=== PATIENT | male | born 1960 | race Caucasian/White ===

== ENCOUNTER 2018-01-27 17:59 | Emergency (ER) | payer SELFPAY ==
[2018-01-27 18:12] VITALS: BP 147/97
[2018-01-27] MEDS ORDERED: Sodium Chloride 0.9% 1,000 ML IV ONE (18:34)
[2018-01-27] MEDS ORDERED: HYDROmorphone 0.5 MG/0.5 ML SYRINGE IVPUSH ONE (18:35)
[2018-01-27] MEDS ORDERED: Ondansetron 4 MG/2 ML SDV IVPUSH ONE (18:35)
[2018-01-27] MEDS ORDERED: Sodium Chloride 0.9% 10 ML Syringe FLUSH PRN (18:35)
--- NOTE | 2018-01-27 18:43 | EDM.PDOC ---
ED HPI GENERAL MEDICAL PROBLEM - General Chief Complaint: Abdominal Pain Stated Complaint: LEFT SIDE PAIN Time Seen by Provider: 01/27/18 18:25 Source of Information: Reports: Patient History Limitations: Reports: No Limitations - History of Present Illness INITIAL COMMENTS - FREE TEXT/NARRATIVE: 57-year-old male presents for evaluation and treatment of left lower quadrant abdominal pain. Reports the pain started around 1530 today. Reports is located in the left lower quadrant of his abdomen. Does not radiate anywhere. He denies any associated fevers, chills, nausea, vomiting, diarrhea, dysuria or hematuria. Denies any back pain. States he's never had anything like this before. Patient reports he had a preop about 2 weeks ago, for a left knee replacement, and was told he had an "early hernia ". Was told to lose weight to treat the hernia and states he has now lost about 15 pounds. Patient has never had a colonoscopy. Left Lower Abdominal Pain Score (Numeric/FACES): 7 - Related Data Allergies Allergy/AdvReac Type Severity Reaction Status Date / Time No Known Allergies Allergy Verified 01/27/18 18:12 Home Meds: Home Meds Acetaminophen/oxyCODONE [Percocet 325-5 MG] 1 each PO Q4HR PRN #20 tab 01/27/18 [Rx] Tamsulosin [Tamsulosin 24 Hr] 0.4 mg PO DAILY #7 cap.er 01/27/18 [Rx] Past Medical History - Past Surgical History GI Surgical History: Reports: Hernia Repair/Other Other Musculoskeletal Surgeries/Procedures:: Bilateral knee surgeries Social & Family History - Family History Family Medical History: Noncontributory - Tobacco Use Smoking Status *Q: Never Smoker - Recreational Drug Use Recreational Drug Use: No ED ROS GENERAL - Review of Systems Review Of Systems: See Below Constitutional: Denies: Fever, Chills GI/Abdominal: Reports: Abdominal Pain (LLQ). Denies: Diarrhea, Nausea, Vomiting : Denies: Dysuria, Hematuria ED EXAM, GI/ABD - Physical Exam Exam: See Below Exam Limited By: No Limitations General Appearance: Alert, WD/WN, No Apparent Distress, Obese Respiratory/Chest: No Respiratory Distress, Lungs Clear, Normal Breath Sounds Cardiovascular: Normal Peripheral Pulses, Regular Rate, Rhythm, No Murmur GI/Abdominal Exam: Normal Bowel Sounds, Soft, Non-Tender. No: Guarding, Rigid, Rebound Back Exam: Normal Inspection. No: CVA Tenderness (L), CVA Tenderness (R) Neurological: Alert, Oriented, Normal Cognition Psychiatric: Normal Affect, Normal Mood Skin Exam: Warm, Dry, Normal Color Course - Vital Signs Last Recorded V/S: Last Vital Signs Temp 97.1 F 01/27/18 18:08 Pulse 63 01/27/18 18:08 Resp 19 01/27/18 18:08 BP 147/97 H 01/27/18 18:08 Pulse Ox 96 01/27/18 18:08 - Orders/Labs/Meds Labs: Laboratory Tests 01/27/18 01/27/18 01/27/18 Range/Units 18:20 18:20 21:22 WBC 7.25 (4.23-9.07) K/mm3 RBC 5.02 (4.63-6.08) M/mm3 Hgb 15.3 (13.7-17.5) gm/L Hct 46.0 (40.1-51.0) % MCV 91.6 (79.0-92.2) fl MCH 30.5 (25.7-32.2) pg MCHC 33.3 (32.2-35.5) g/dl RDW Std Deviation 45.4 H (35.1-43.9) fL Plt Count 130 L (163-337) K/mm3 MPV 12.1 (9.4-12.3) fl Neutrophils % (Manual) 68 H (40-60) % Band Neutrophils % 1 (0-10) % Lymphocytes % (Manual) 22 (20-40) % Atypical Lymphs % 0 % Monocytes % (Manual) 7 (2-10) % Eosinophils % (Manual) 2 (0.8-7.0) % Basophils % (Manual) 0 L (0.2-1.2) Toxic Granulation Moderate Platelet Estimate Decreased Plt Morphology Comment Normal RBC Morph Comment Normal Sodium 138 (136-145) mEq/L Potassium 4.5 (3.5-5.1) mEq/L Chloride 102 (98-107) mEq/L Carbon Dioxide 23 (21-32) mEq/L Anion Gap 17.5 H (5-15) BUN 16 (7-18) mg/dL Creatinine 1.0 (0.7-1.3) mg/dL Est Cr Clr Drug Dosing 94.76 mL/min Estimated GFR (MDRD) > 60 (>60) mL/min BUN/Creatinine Ratio 16.0 (14-18) Glucose 127 H (74-106) mg/dL Calcium 9.1 (8.5-10.1) mg/dL Total Bilirubin 0.9 (0.2-1.0) mg/dL AST 68 H (15-37) U/L ALT 107 H (16-63) U/L Alkaline Phosphatase 92 (46-116) U/L C-Reactive Protein 1.2 H* (<1.0) mg/dL Total Protein 8.1 (6.4-8.2) g/dl Albumin 3.9 (3.4-5.0) g/dl Globulin 4.2 gm/dL Albumin/Globulin Ratio 0.9 L (1-2) Urine Color Yellow (Yellow) Urine Appearance Clear (Clear) Urine pH 6.0 (5.0-8.0) Ur Specific [place] 1.010 (1.005-1.030) Urine Protein Negative (Negative) Urine Glucose (UA) Negative (Negative) Urine Ketones Negative (Negative) Urine Occult Blood Trace-lysed H (Negative) Urine Nitrite Negative (Negative) Urine Bilirubin Negative (Negative) Urine Urobilinogen 2.0 H (0.2-1.0) Ur Leukocyte Esterase Negative (Negative) Urine RBC 0-5 (0-5) /hpf Urine WBC 0-5 (0-5) /hpf Ur Epithelial Cells 0-5 (0-5) /hpf Urine Bacteria Rare (FEW) /hpf Urine Mucus Not seen (FEW) /hpf Meds: Medications Discontinued Medications Generic Name Dose Route Start Last Admin Trade Name Freq PRN Reason Stop Dose Admin Diatrizoate Meglum/Diatrizoate Sod 90 ml 01/27/18 19:51 Gastrografin 37% PO 01/27/18 19:52 ONETIME ONE Hydromorphone HCl 0.5 mg 01/27/18 18:35 01/27/18 22:49 Dilaudid IVPUSH 01/27/18 18:36 Not Given ONETIME ONE Sodium Chloride 1,000 mls @ 999 mls/hr 01/27/18 18:34 01/27/18 18:50 Normal Saline IV 08/07/18 19:34 999 mls/hr ONETIME ONE Administration Sodium Chloride 100 mls @ 4 mls/sec 01/27/18 19:51 Normal Saline IV 01/27/18 19:52 ONETIME ONE Iopamidol 125 ml 01/27/18 19:51 Isovue-300 (61%) IVPUSH 01/27/18 19:52 ONETIME ONE Ketorolac Tromethamine 30 mg 01/27/18 21:04 01/27/18 22:49 Toradol IVPUSH 01/27/18 21:05 Not Given ONETIME ONE Ondansetron HCl 4 mg 01/27/18 18:35 01/27/18 18:48 Zofran IVPUSH 01/27/18 18:36 4 mg ONETIME ONE Administration Sodium Chloride 10 ml 01/27/18 18:35 01/27/18 18:35 Saline Flush FLUSH 10 ml ASDIRECTED PRN Administration Keep Vein Open - Radiology Interpretation Free Text/Narrative:: CT abdomen and pelvis Technique: Multiple axial sections were obtained from above the dome of the diaphragm inferiorly through the pubic symphysis. Intravenous and oral contrast was utilized. Delayed images were also obtained through the bladder. Comparison: No prior abdominal imaging. Findings: Obstructing stone is seen within the proximal left ureter measuring approximately 4 mm. This causes minimal hydronephrosis of the left kidney. Cyst is noted off the cortex of the right kidney measuring about 4.8 cm. Minimal nonobstructing stone is noted within the lower left kidney measuring approximately 2.5 mm. No additional abnormality is seen within the kidneys. Visualized lung bases show nothing acute. Liver shows diffuse fatty infiltration without focal abnormality. Spleen appears within normal limits. Adrenal glands show no nodule. Pancreas is normal. Aorta shows atherosclerotic change without aneurysm. Focal ectasia is seen of the right common iliac artery with diameter of 2.3 cm. Gallbladder contains no calcified gallstones. Pancreas is within normal limits. Duodenal diverticula is felt to be present. No retroperitoneal adenopathy is seen. No pelvic mass or adenopathy is seen. Mild diverticuli are seen within the descending and sigmoid colon without diverticulitis. Delayed images shows contrast within the distal ureter and bladder. Bone window settings were reviewed which shows disc space narrowing and vacuum phenomena at L5-S1. Scattered disc space narrowing is noted within the lower thoracic spine. Incidental small fat-containing umbilical hernia is noted. Impression: 1. 4 mm obstructing stone within the proximal left ureter causing minimal left sided hydronephrosis. 2. Right renal cyst and small nonobstructing stone within the lower left kidney. 3. Other incidental findings as noted above. - Re-Assessments/Exams Free Text/Narrative Re-Assessment/Exam: 01/27/18 22:10 Reviewed labs and imaging with the patient. Declined dilaudid as he is driving. Minimal pain at this time. Stone will likely pass on its own. If not recommend follow-up with urology. Rx for percocet and flomax given. Discharge instructions as documented. Departure - Departure Time of Disposition: 22:13 Disposition: Home, Self-Care 01 Condition: Fair Clinical Impression: Nephrolithiasis - Discharge Information *PRESCRIPTION DRUG MONITORING PROGRAM REVIEWED*: No *COPY OF PRESCRIPTION DRUG MONITORING REPORT IN PATIENT CAESAR: No Prescriptions: Acetaminophen/oxyCODONE [Percocet 325-5 MG] 1 each PO Q4HR PRN #20 tab PRN Reason: Pain Tamsulosin [Tamsulosin 24 Hr] 0.4 mg PO DAILY #7 cap.er Instructions: Kidney Stones, [id number] Referrals: Joao Orozco Jr, MD [Primary Care Provider] - Gerry Molina MD [Ordering Only Provider] - Forms: ED Department Discharge Additional Instructions: Strain your urine until the stone passes. Bring this to your primary care provider or urology for analysis. Percocet 1 or 2 tabs every 4-6 hours as needed for pain. Do not drive or operate machinery within 10 hours of taking Percocet. Percocet is habit-forming , take as little as needed to control your pain. Flomax 1 tab daily until stone passes. Make sure you drink plenty of fluids. If the stone does not pass within one week recommend seen urology. Recommend Dr. Mloina at [facility] in [place]. Call [phone] to schedule with him. Follow-up with your primary care provider as needed. Please return to the ER if your symptoms change or worsen.
[2018-01-27] MEDS ORDERED: Diatrizoate Meglumine/Diatrizoate Sodium 37% 120 ML Bottle PO ONE (19:51)
[2018-01-27] MEDS ORDERED: Sodium Chloride 0.9% 100 ML IV ONE (19:51)
[2018-01-27] MEDS ORDERED: Iopamidol 612 MG/ML 150 ML Bottle IVPUSH ONE (19:51)
--- NOTE | 2018-01-27 20:47 | CT ---
CT abdomen and pelvis Technique: Multiple axial sections were obtained from above the dome of the diaphragm inferiorly through the pubic symphysis. Intravenous and oral contrast was utilized. Delayed images were also obtained through the bladder. Comparison: No prior abdominal imaging. Findings: Obstructing stone is seen within the proximal left ureter measuring approximately 4 mm. This causes minimal hydronephrosis of the left kidney. Cyst is noted off the cortex of the right kidney measuring about 4.8 cm. Minimal nonobstructing stone is noted within the lower left kidney measuring approximately 2.5 mm. No additional abnormality is seen within the kidneys. Visualized lung bases show nothing acute. Liver shows diffuse fatty infiltration without focal abnormality. Spleen appears within normal limits. Adrenal glands show no nodule. Pancreas is normal. Aorta shows atherosclerotic change without aneurysm. Focal ectasia is seen of the right common iliac artery with diameter of 2.3 cm. Gallbladder contains no calcified gallstones. Pancreas is within normal limits. Duodenal diverticula is felt to be present. No retroperitoneal adenopathy is seen. No pelvic mass or adenopathy is seen. Mild diverticuli are seen within the descending and sigmoid colon without diverticulitis. Delayed images shows contrast within the distal ureter and bladder. Bone window settings were reviewed which shows disc space narrowing and vacuum phenomena at L5-S1. Scattered disc space narrowing is noted within the lower thoracic spine. Incidental small fat-containing umbilical hernia is noted. Impression: 1. 4 mm obstructing stone within the proximal left ureter causing minimal left sided hydronephrosis. 2. Right renal cyst and small nonobstructing stone within the lower left kidney. 3. Other incidental findings as noted above. Diagnostic code #3
[2018-01-27] MEDS ORDERED: Ketorolac 30 MG/ML SDV IVPUSH ONE (21:04)
== END 2018-01-27 22:25 | disposition home or self-care (01) ==
LOC: MERGE 17:59 → JD.ED 17:59 → EDBD 17:59 → JD.ED 22:25
DX: N13.2 Hydronephrosis with renal and ureteral calculous obstruction (principal)
CPT/HCPCS: 36415; 74177; 80053; 81001; 85007; 85027; 86140; 96361; 96374; 99284; J2405; J7040; J7050; Q9963

== ENCOUNTER 2020-08-15 06:51 | Day surgery (SDC) | payer BC ==
[2020-08-15] MEDS ORDERED: Lidocaine 1%/Sod Bicarbonate in NS 8.4% 1 ML Syringe IDERM PRN (07:00)
[2020-08-15] MEDS ORDERED: Sodium Chloride 0.9% 10 ML Syringe FLUSH PRN (07:00)
[2020-08-15] MEDS ORDERED: Lactated Ringers 1,000 ML IV SCH (07:00)
--- NOTE | 2020-08-15 07:21 | PCM.PREANE ---
Preanesthetic Assessment - Procedure Proposed Procedure: EGD/Colonoscopy - Anesthesia/Transfusion/Family Hx Anesthesia History: Prior Anesthesia Without Reaction Family History of Anesthesia Reaction: No Transfusion History: No Prior Transfusion(s) - Review of Systems General: No Symptoms Pulmonary: No Symptoms Cardiovascular: No Symptoms Gastrointestinal: No Symptoms Neurological: No Symptoms Other: Reports: None - Physical Assessment NPO Status Date: 08/15/20 NPO Status Time: 00:00 Height: 1.88 m ASA Class: 2 Mental Status: Alert & Oriented x3 Airway Class: Mallampati = 2 Dentition: Reports: [place](s) Thyro-Mental Finger Breadths: 3 Mouth Opening Finger Breadths: 3 ROM/Head Extension: Full Lungs: Clear to Auscultation, Normal Respiratory Effort Cardiovascular: Regular Rate, Regular Rhythm - Allergies Allergies/Adverse Reactions: Allergies Allergy/AdvReac Type Severity Reaction Status Date / Time No Known Allergies Allergy Verified 08/14/20 11:06 - Blood Blood Available: No Product(s) Available: None - Anesthesia Plan Pre-Op Medication Ordered: None - Acknowledgements Anesthesia Type Planned: MAC Pt an Appropriate Candidate for the Planned Anesthesia: Yes Alternatives and Risks of Anesthesia Discussed w Pt/Guardian: Yes Pt/Guardian Understands and Agrees with Anesthesia Plan: Yes PreAnesthesia Questionnaire HEENT History: Reports: Cataract Cardiovascular History: Reports: Other (See Below) Other Cardiovascular History: varicose veins with surgical intervention Respiratory History: Reports: Sleep Apnea Gastrointestinal History: Reports: None Genitourinary History: Reports: None 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 Musculoskeletal History: Reports: None Neurological History: Reports: None Psychiatric History: Reports: None Endocrine/Metabolic History: Reports: None Hematologic History: Reports: None Immunologic History: Reports: None Oncologic (Cancer) History: Reports: None Dermatologic History: Reports: Other (See Below) Other Dermatologic History: pilonidal cyst - Infectious Disease History Infectious Disease History: Reports: None - Past Surgical History Head Surgeries/Procedures: Reports: None HEENT Surgical History: Reports: Tonsillectomy Cardiovascular Surgical History: Reports: None Respiratory Surgical History: Reports: None GI Surgical History: Reports: Hernia Repair/Other Female Surgical History: Reports: None Male Surgical History: Reports: None Endocrine Surgical History: Reports: None Neurological Surgical History: Reports: None Musculoskeletal Surgical History: Reports: Arthroscopic Knee Other Musculoskeletal Surgeries/Procedures:: Bilateral knee surgeries Oncologic Surgical History: Reports: None Dermatological Surgical History: Reports: None - SUBSTANCE USE Tobacco Use Status *Q: Current Every Day Tobacco User Tobacco Use Within Last Twelve Months: Snuff/Dip Second Hand Smoke Exposure: No Days Per Week of Alcohol Use: 7 Number of Drinks Per Day: 3 Total Drinks Per Week: 21 Recreational Drug Use History: No - HOME MEDS Home Medications: Home Meds Ibuprofen [Advil] 200 - 600 mg PO Q6H PRN 08/14/20 [History] Psyllium Husk [Metamucil] 1 dose PO QAM 08/14/20 [History] - CURRENT (IN HOUSE) MEDS Current Meds: Current Medications Lactated Ringer's (Ringers, Lactated) 1,000 mls @ 125 mls/hr IV ASDIRECTED YOLANDE Stop: 08/15/20 23:00 Lidocaine/Sodium Bicarbonate (Buffered Lidocaine 1% In Ns 8.4%) 0.25 ml IDERM ONETIME PRN PRN Reason: Prior to IV Start Stop: 08/15/20 18:00 Sodium Chloride (Saline Flush) 10 ml FLUSH ASDIRECTED PRN PRN Reason: Keep Vein Open Stop: 08/15/20 18:00
[2020-08-15] MEDS ORDERED: fentaNYL 100 MCG/2 ML SDV ONE (07:30)
[2020-08-15] MEDS ORDERED: Midazolam 1 MG/ML 2 ML SDV ONE (07:31)
[2020-08-15] MEDS ORDERED: Propofol 200 MG/20 ML SDV ONE ×3 (07:31→08:01)
[2020-08-15] MEDS ORDERED: Lidocaine 1% 4 ML ONE (07:31)
--- NOTE | 2020-08-15 08:25 | PCM.OPNOTE ---
- General Post-Op/Procedure Note Date of Surgery/Procedure: 08/15/20 Operative Procedure(s): esophagogastroduodenoscopy with cold forceps biopsy, colonoscopy with cold forceps biopsy and hot snare polypectomy Findings: 1. esophagitis 2. gastritis with gastric erosions 3. small sliding hiatal hernia 4. diverticulosis sigmoid colon 5. colon polyps Pre Op Diagnosis: GERD, Family history of esophageal cancer, Colon cancer screening Post-Op Diagnosis: 1. Gastritis with gastric erosions 2. Esophagitis 3. Small sliding hiatal hernia 4. Colon polyps 5. Sigmoid Diverticulosis Anesthesia Technique: MAC Primary Surgeon: Gideon Elizabeth Anesthesia Provider: Jordan Patel EBL in mLs: 5 Complications: None Condition: Good Free Text/Narrative:: After the patient gave verbal consent he was placed on blood pressure and pulse ox monitoring. He was given IV sedation which he tolerated well. The olympus gastroscope was inserted in the oropharynx and passed to the second portion of duodenum. The scope was slowly withdrawn and mucosal surfaces were carefully examined. Duodenal surfaces were normal. The gastric surfaces showed gastric erosions 2 in total and superficial gastritis. Cold forceps biopsy was accomplished with minimal bleeding. The scope was then retroflexed and a small sliding hiatal hernia was noted. Scope was straightened out ans brought back to the gastroesophageal junction. Mild to moderate gastroesophageal esophagitis was noted. Biopsies were taken at the GE junction. The scope was then removed. The patient was then prepped for colonoscopy. The Olympus scope was inserted per rectum advanced cecum without difficulty. The ileocecal valve and appendiceal orifice were imaged documents cecal intubation. The colonoscope was withdrawn. The prep was good. The views were good. Mucosal surfaces were carefully examined. Sigmoid diverticulosis was noted. A small 2 mm descending colon polyp and 2 mm sigmoid polyp were noted and removed with cold forceps biopsy. There was good hemostasis. A 10 mm colon polyp was noted in the distal sigmoid removed with hot snare polypectomy. There was good hemostasis. The colonoscope was then brought down to the rectum and retroflexed. It was then straightened out and removed. The patient tolerated the procedure well and there were no complications and he returned to the preoperative area in good condition.
--- NOTE | 2020-08-15 08:28 | PCM48HPAN ---
Post Anesthesia Note - EVALUATION WITHIN 48HRS OF ANESTHETIC Vital Signs in Normal Range: Yes Patient Participated in Evaluation: Yes Respiratory Function Stable: Yes Airway Patent: Yes Cardiovascular Function Stable: Yes Hydration Status Stable: Yes Pain Control Satisfactory: Yes Nausea and Vomiting Control Satisfactory: Yes Mental Status Recovered: Yes Vital Signs: Last Vital Signs Temp 36.1 C 08/15/20 06:55 Pulse 62 08/15/20 06:55 Resp 20 08/15/20 06:55 BP 149/87 H 08/15/20 06:55 Pulse Ox 94 L 08/15/20 06:55 - COMMENTS/OBSERVATIONS Free Text/Narrative:: no anesthesia complications noted
[2020-08-15 10:10] VITALS: BP 125/69; PULSE 58
== END 2020-08-15 09:07 | disposition home or self-care (01) ==
LOC: JD.SDS 06:51
PROVIDERS: ATTEND Family Medicine
DX: Z12.11 Encounter for screening for malignant neoplasm of colon (principal); D12.4 Benign neoplasm of descending colon; D12.5 Benign neoplasm of sigmoid colon; K57.30 Diverticulosis of large intestine without perforation or abscess without bleeding; K21.00 Gastro-esophageal reflux disease with esophagitis, without bleeding; K29.50 Unspecified chronic gastritis without bleeding; F17.210 Nicotine dependence, cigarettes, uncomplicated; K44.9 Diaphragmatic hernia without obstruction or gangrene; K25.9 Gastric ulcer, unspecified as acute or chronic, without hemorrhage or perforation; K31.89 Other diseases of stomach and duodenum; Z80.0 Family history of malignant neoplasm of digestive organs; G47.33 Obstructive sleep apnea (adult) (pediatric); Z79.899 Other long term (current) drug therapy; Z98.890 Other specified postprocedural states
CPT/HCPCS: 43239; 45380; 45385; J2250; J2704; J3010; J7120; 00813

== ENCOUNTER 2020-10-10 07:00 | Day surgery (SDC) | payer BC ==
[~2020-10-10 07:00] MED LIST: Cefuroxime 10 MG/ML SYRINGE EYERT SCH; Lidocaine 1% PF 2 ML SDV INJECT SCH
[2020-10-10] MEDS: Polymyxin B/Trimethoprim 10 ML Bottle EYERT SCH ×3 (07:11→08:44)
[2020-10-10] MEDS: Brimonidine 0.2% Ophth Soln 5 ML Bottle EYERT SCH ×3 (07:18→08:44)
--- NOTE | 2020-10-10 07:18 | PCM.PREANE ---
Preanesthetic Assessment - Anesthesia/Transfusion/Family Hx Anesthesia History: Prior Anesthesia Without Reaction Family History of Anesthesia Reaction: No Transfusion History: No Prior Transfusion(s) Intubation History: Unknown - Review of Systems General: No Symptoms Pulmonary: No Symptoms (ETOH: frequently, Chews tobacco: occaionally/ GISELA- CPAP) Cardiovascular: No Symptoms (Borderline HTN) Gastrointestinal: No Symptoms (Hiatal hernia) Neurological: No Symptoms Other: Reports: None - Physical Assessment NPO Status Date: 10/09/20 NPO Status Time: 21:00 Vital Signs: HR: 81 B/P: 189/80 Resp: 16 Sat: 94% Temp: 97.6 Height: 1.91 m Weight: 149.232 kg ASA Class: 3 Mental Status: Alert & Oriented x3 Airway Class: Mallampati = 2 Dentition: Reports: Normal Dentition, [place](s), [place] Thyro-Mental Finger Breadths: 3 Mouth Opening Finger Breadths: 3 ROM/Head Extension: Full Lungs: Clear to Auscultation, Normal Respiratory Effort Cardiovascular: Regular Rate, Regular Rhythm, No Murmurs - Allergies Allergies/Adverse Reactions: Allergies Allergy/AdvReac Type Severity Reaction Status Date / Time No Known Allergies Allergy Verified 10/09/20 12:43 - Anesthesia Plan Pre-Op Medication Ordered: None - Acknowledgements Anesthesia Type Planned: MAC Pt an Appropriate Candidate for the Planned Anesthesia: Yes Alternatives and Risks of Anesthesia Discussed w Pt/Guardian: Yes Pt/Guardian Understands and Agrees with Anesthesia Plan: Yes PreAnesthesia Questionnaire HEENT History: Reports: Cataract Cardiovascular History: Reports: Other (See Below) Other Cardiovascular History: varicose veins with surgical intervention Respiratory History: Reports: Sleep Apnea Gastrointestinal History: Reports: None Genitourinary History: Reports: None 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 Musculoskeletal History: Reports: None Neurological History: Reports: None Psychiatric History: Reports: None Endocrine/Metabolic History: Reports: None Hematologic History: Reports: None Immunologic History: Reports: None Oncologic (Cancer) History: Reports: None Dermatologic History: Reports: Other (See Below) Other Dermatologic History: pilonidal cyst - Infectious Disease History Infectious Disease History: Reports: None - Past Surgical History Head Surgeries/Procedures: Reports: None HEENT Surgical History: Reports: Tonsillectomy Cardiovascular Surgical History: Reports: None Respiratory Surgical History: Reports: None GI Surgical History: Reports: Hernia Repair/Other Female Surgical History: Reports: None Male Surgical History: Reports: None Endocrine Surgical History: Reports: None Neurological Surgical History: Reports: None Musculoskeletal Surgical History: Reports: Arthroscopic Knee Other Musculoskeletal Surgeries/Procedures:: Bilateral knee surgeries Oncologic Surgical History: Reports: None Dermatological Surgical History: Reports: None - HOME MEDS Home Medications: Home Meds Carboxymethylcellulose Sodium [Artificial Tears] 1 dose EYEBOTH ASDIRECTED PRN 10/09/20 [History] - CURRENT (IN HOUSE) MEDS Current Meds: Current Medications Brimonidine Tartrate (Brimonidine 0.2% Ophth Soln 5 Ml Bottle) 0 ml EYERT ASDIRECTED YOLANDE Stop: 10/11/20 00:02 Cefuroxime Sodium (Cefuroxime 10 Mg/Ml Syringe) 0 mg EYERT ASDIRECTED OYLANDE Stop: 10/10/20 23:00 Lidocaine HCl (Lidocaine 1% Pf 2 Ml Sdv) 0 ml INJECT ASDIRECTED YOLANDE Stop: 10/10/20 23:00 Phenylephrine HCl (Phenylephrine 2.5% Ophth Soln 2 Ml Bot) 0 ml EYERT ASDIRECTED YOLANDE Stop: 10/10/20 23:00 Pilocarpine HCl (Pilocarpine 4% Ophth Soln 15 Ml Bot) 0 ml EYERT ASDIRECTED YOLANDE Stop: 10/11/20 23:00 Polymyxin/Trimethoprim Sulfate (Polymyxin B/Trimethoprim 10 Ml Bottle) 0 ml EYERT ASDIRECTED YOLANDE Stop: 10/10/20 23:00 Tetracaine HCl (Tetracaine Hcl/Pf 0.5% 4 Ml Bottle) 0 ml EYEBOTH ASDIRECTED YOLANDE Stop: 10/10/20 23:00 Tropicamide (Tropicamide 1% Ophth Soln 15 Ml Bottle) 0 ml EYERT ASDIRECTED YOLANDE Stop: 10/10/20 23:00
[2020-10-10] MEDS: Phenylephrine 2.5% Ophth Soln 2 ML Bot EYERT SCH ×5 (07:22→08:18)
[2020-10-10] MEDS: Tropicamide 1% Ophth Soln 15 ML Bottle EYERT SCH ×4 (07:26→07:59)
[2020-10-10] MEDS: Tetracaine HCl/PF 0.5% 4 ML Bottle EYEBOTH SCH ×2 (08:08→08:32)
[2020-10-10] MEDS: Pilocarpine 4% Ophth Soln 15 ML Bot EYERT SCH ×2 (08:42→08:44)
--- NOTE | 2020-10-10 08:46 | PCM48HPAN ---
Post Anesthesia Note - EVALUATION WITHIN 48HRS OF ANESTHETIC Vital Signs in Normal Range: Yes Patient Participated in Evaluation: Yes Respiratory Function Stable: Yes Airway Patent: Yes Cardiovascular Function Stable: Yes Hydration Status Stable: Yes Pain Control Satisfactory: Yes Nausea and Vomiting Control Satisfactory: Yes Mental Status Recovered: Yes Vital Signs: Last Vital Signs Temp 36.4 C 10/10/20 07:10 Pulse 81 10/10/20 07:10 Resp 16 10/10/20 07:10 BP 189/80 H 10/10/20 07:10 Pulse Ox 93 L 10/10/20 07:10
[2020-10-10 09:02] VITALS: BP 168/92; PULSE 64
== END 2020-10-10 08:56 | disposition home or self-care (01) ==
LOC: JD.SDS 07:00
PROVIDERS: ATTEND Ophthalmology
DX: H25.813 Combined forms of age-related cataract, bilateral (principal); G47.33 Obstructive sleep apnea (adult) (pediatric)
CPT/HCPCS: 66984; J0697; C1780

== ENCOUNTER 2021-04-26 07:16 | Emergency (ER) | payer BC ==
[2021-04-26] MEDS ORDERED: HYDROmorphone 1 MG/ML Syringe IVPUSH ONE (08:03)
[2021-04-26] MEDS ORDERED: Sodium Chloride 0.9% 10 ML Syringe FLUSH PRN (08:04)
[2021-04-26] MEDS ORDERED: Sodium Chloride 0.9% 1,000 ML IV STA (08:09)
[2021-04-26] MEDS ORDERED: Ondansetron 4 MG/2 ML SDV IVPUSH ONE (08:09)
[2021-04-26] MEDS ORDERED: Ketorolac 15 MG/ML SDV IVPUSH ONE (08:27)
[2021-04-26] MEDS ORDERED: Acetaminophen/oxyCODONE 325-5 MG Tab PO ONE (09:22)
--- NOTE | 2021-04-26 09:24 | CT ---
CT abdomen and pelvis Technique: Axial sections were obtained from above the dome of the diaphragm inferiorly through the pubic symphysis. Intravenous and oral contrast were not utilized. Reconstructed coronal and sagittal images were also obtained. Comparison: Prior abdomen and pelvis CT dated 01/27/18. Findings: Right kidney shows approximately four nonobstructing calculi. Largest stone lies within the renal pelvis measuring 6-7 mm. Cyst is noted off the cortex of the right kidney measuring 5.2 cm. Small stone is noted within the proximal right ureter measuring about 3-3.5 mm. This causes surrounding inflammatory change around the proximal ureter. No other abnormal calcifications are seen within the right or left ureters. Left kidney shows a single small nonobstructing stone. Minimal lesion is noted off the left kidney measuring 8 mm most likely due to small hemorrhagic cyst. Visualized lung bases show nothing acute. Liver shows diffuse fatty infiltration. Liver is also mildly enlarged. Gallbladder contains no calcified gallstones. Adrenal glands show no nodule. Pancreas shows no discrete abnormality. There is a duodenal diverticulum being seen measuring approximately 4.7 cm. Abdominal aorta shows atherosclerotic calcification with no aneurysm. Ectasia is seen. 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 No pelvic mass or adenopathy is seen. No free fluid or inflammatory change is otherwise seen. Very slight diverticulosis is seen within the sigmoid colon and descending colon. Bone window settings were reviewed which show mild scattered degenerative change within the spine. Vacuum disc phenomena is seen within the L5-S1 disc. Impression: 1. Approximately four nonobstructing stones within the right kidney. Largest stone lies within the renal pelvis. Proximal right ureter is dilated with a 3-3.5 mm stone within the proximal right ureter. This is causing obstruction with inflammatory change being seen around the right proximal ureter. 2. Cyst within the right kidney. Single nonobstructing is stone noted within the left kidney. 3. Fatty infiltration within the liver. Duodenal diverticulum is noted. 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 4. Other chronic findings as described above. Diagnostic code #3
--- NOTE | 2021-04-26 09:26 | EDM.PDOC ---
ED HPI GENERAL MEDICAL PROBLEM - General Chief Complaint: Abdominal Pain Stated Complaint: ABD PAIN Time Seen by Provider: 04/26/21 08:12 Source of Information: Reports: Patient, RN Notes Reviewed History Limitations: Reports: No Limitations - History of Present Illness INITIAL COMMENTS - FREE TEXT/NARRATIVE: Patient is a 60-year-old male presenting to the emergency department with complaints of acute onset of right lower quadrant abdominal and right flank pain with radiation into his right groin around 3 AM this morning. Patient states that the onset of the pain, he felt very nauseous, but did not vomit. Prior to this time, he was feeling well. He has had no fever, chills, vomiting, or diarrhea. Patient does report a history of kidney stones on the left side. He was able to pass these without difficulty. He has never seen urology. Denies any chronic medical conditions. Right Abdomen Pain Score (Numeric/FACES): 10 - Related Data Allergies Allergy/AdvReac Type Severity Reaction Status Date / Time No Known Allergies Allergy Verified 04/26/21 07:30 Home Meds: Home Meds Carboxymethylcellulose Sodium [Artificial Tears] 1 dose EYEBOTH ASDIRECTED PRN 10/09/20 [History] Multivitamin with Minerals [Multiple Vitamin] 1 tab PO DAILY 10/10/20 [History] Acetaminophen/oxyCODONE [Percocet 325-5 MG] 1 each PO Q4H PRN #15 tab 04/26/21 [Rx] Ondansetron [Zofran ODT] 4 mg PO Q6H PRN #10 tab.dis 04/26/21 [Rx] metFORMIN [Glucophage] 500 mg PO BIDMEALS #60 tab 04/26/21 [Rx] Past Medical History HEENT History: Reports: Cataract Cardiovascular History: Reports: Other (See Below) Other Cardiovascular History: varicose veins with surgical intervention Respiratory History: Reports: Sleep Apnea Gastrointestinal History: Reports: None Genitourinary History: Reports: None GRE[employer] History: Reports: None Musculoskeletal History: Reports: None Neurological History: Reports: None Psychiatric History: Reports: None Endocrine/Metabolic History: Reports: None Hematologic History: Reports: None Immunologic History: Reports: None Oncologic (Cancer) History: Reports: None Dermatologic History: Reports: Other (See Below) Other Dermatologic History: pilonidal cyst - Infectious Disease History Infectious Disease History: Reports: None - Past Surgical History Head Surgeries/Procedures: Reports: None HEENT Surgical History: Reports: Tonsillectomy Cardiovascular Surgical History: Reports: None Respiratory Surgical History: Reports: None GI Surgical History: Reports: Hernia Repair/Other Male Surgical History: Reports: None Endocrine Surgical History: Reports: None Neurological Surgical History: Reports: None Musculoskeletal Surgical History: Reports: Arthroscopic Knee Other Musculoskeletal Surgeries/Procedures:: Bilateral knee surgeries Oncologic Surgical History: Reports: None Dermatological Surgical History: Reports: None Social & Family History - Family History Family Medical History: No Pertinent Family History - Tobacco Use Tobacco Use Status *Q: Current Every Day Tobacco User Years of Tobacco use: 40 Packs/Tins Daily: 0.5 - Caffeine Use Caffeine Use: Reports: Coffee, Soda ED ROS GENERAL - Review of Systems Review Of Systems: Comprehensive ROS is negative, except as noted in HPI. ED EXAM, RENAL/ - Physical Exam Exam: See Below Exam Limited By: No Limitations General Appearance: Alert, WD/WN, Mild Distress Respiratory/Chest: No Respiratory Distress, Lungs Clear, Normal Breath Sounds, No Accessory Muscle Use, Chest Non-Tender Cardiovascular: Normal Peripheral Pulses, Regular Rate, Rhythm, No Edema, No Gallop, No JVD, No Murmur, No Rub GI/Abdominal: Normal Bowel Sounds, Soft, Non-Tender, No Organomegaly, No Distention, No Abnormal Bruit, No Mass Back Exam: Normal Inspection, Full Range of Motion. No: CVA Tenderness (L), CVA Tenderness (R) Neurological: Alert, Oriented, CN II-XII Intact, Normal Cognition, Normal Gait, Normal Reflexes, No Motor/Sensory Deficits Psychiatric: Normal Affect, Normal Mood Skin Exam: Warm, Dry, Intact, Normal Color, No Rash Course - Vital Signs Last Recorded V/S: Last Vital Signs Temp 97.8 F 04/26/21 07:27 Pulse 54 L 04/26/21 07:27 Resp 18 04/26/21 07:27 BP 172/98 H 04/26/21 07:27 Pulse Ox 94 L 04/26/21 07:27 - Orders/Labs/Meds Orders: Active Orders 24 hr Category Date Time Status Peripheral IV Care [RC] . DIRECTED Care 04/26/21 08:05 Active Sodium Chloride 0.9% [Saline Flush] Med 04/26/21 08:04 Active 10 ml FLUSH ASDIRECTED PRN Peripheral IV Insertion Adult [OM.PC] Stat Oth 04/26/21 08:03 Ordered Medication Orders Sodium Chloride (Sodium Chloride 0.9% 10 Ml Syringe) 10 ml FLUSH ASDIRECTED PRN PRN Reason: Keep Vein Open Last Admin: 04/26/21 08:20 Dose: 10 ml Documented by: GILBERTO Labs: Laboratory Tests 04/26/21 04/26/21 04/26/21 Range/Units 07:30 07:30 07:30 WBC 5.48 (4.23-9.07) K/mm3 RBC 4.83 (4.63-6.08) M/mm3 Hgb 15.4 (13.7-17.5) gm/dl Hct 45.3 (40.1-51.0) % MCV 93.8 H (79.0-92.2) fl MCH 31.9 (25.7-32.2) pg MCHC 34.0 (32.2-35.5) g/dl RDW Std Deviation 43.0 (35.1-43.9) fL Plt Count 116 L (163-337) K/mm3 MPV 11.6 (9.4-12.3) fl Neut % (Auto) 69.9 H (34.0-67.9) % Lymph % (Auto) 17.3 L (21.8-53.1) % [place] % (Auto) 11.5 (5.3-12.2) % Eos % (Auto) 0.7 L (0.8-7.0) Baso % (Auto) 0.4 (0.1-1.2) % Neut # (Auto) 3.83 (1.78-5.38) K/mm3 Lymph # (Auto) 0.95 L (1.32-3.57) K/mm3 [place] # (Auto) 0.63 (0.30-0.82) K/mm3 Eos # (Auto) 0.04 (0.04-0.54) K/mm3 Baso # (Auto) 0.02 (0.01-0.08) K/mm3 Sodium 136 (136-145) mEq/L Potassium 4.3 (3.5-5.1) mEq/L Chloride 101 (98-107) mEq/L Carbon Dioxide 23 (21-32) mEq/L Anion Gap 16.3 H (5-15) BUN 14 (7-18) mg/dL Creatinine 0.9 (0.7-1.3) mg/dL Est Cr Clr Drug Dosing 101.48 mL/min Estimated GFR (MDRD) > 60 (>60) mL/min BUN/Creatinine Ratio 15.6 (14-18) Glucose 361 H (70-99) mg/dL Hemoglobin A1c 10.2 H ( - 5.6) % Calcium 9.0 (8.5-10.1) mg/dL Total Bilirubin 0.9 (0.2-1.0) mg/dL AST 64 H (15-37) U/L ALT 125 H (16-63) U/L Alkaline Phosphatase 116 (46-116) U/L C-Reactive Protein 1.3 H* (<1.0) mg/dL Total Protein 7.7 (6.4-8.2) g/dl Albumin 4.1 (3.4-5.0) g/dl Globulin 3.6 gm/dL Albumin/Globulin Ratio 1.1 (1-2) Urine Color (Yellow) Urine Appearance (Clear) Urine pH (5.0-8.0) Ur Specific Jackson (1.005-1.030) Urine Protein (Negative) Urine Glucose (UA) (Negative) Urine Ketones (Negative) Urine Occult Blood (Negative) Urine Nitrite (Negative) Urine Bilirubin (Negative) Urine Urobilinogen (0.2-1.0) Ur Leukocyte Esterase (Negative) Urine RBC (0-5) /hpf Urine WBC (0-5) /hpf Ur Squamous Epith Cells (0-5) /hpf Urine Bacteria (FEW) /hpf Urine Mucus (FEW) /hpf 04/26/21 Range/Units 09:35 WBC (4.23-9.07) K/mm3 RBC (4.63-6.08) M/mm3 Hgb (13.7-17.5) gm/dl Hct (40.1-51.0) % MCV (79.0-92.2) fl MCH (25.7-32.2) pg MCHC (32.2-35.5) g/dl RDW Std Deviation (35.1-43.9) fL Plt Count (163-337) K/mm3 MPV (9.4-12.3) fl Neut % (Auto) (34.0-67.9) % Lymph % (Auto) (21.8-53.1) % [place] % (Auto) (5.3-12.2) % Eos % (Auto) (0.8-7.0) Baso % (Auto) (0.1-1.2) % Neut # (Auto) (1.78-5.38) K/mm3 Lymph # (Auto) (1.32-3.57) K/mm3 [place] # (Auto) (0.30-0.82) K/mm3 Eos # (Auto) (0.04-0.54) K/mm3 Baso # (Auto) (0.01-0.08) K/mm3 Sodium (136-145) mEq/L Potassium (3.5-5.1) mEq/L Chloride (98-107) mEq/L Carbon Dioxide (21-32) mEq/L Anion Gap (5-15) BUN (7-18) mg/dL Creatinine (0.7-1.3) mg/dL Est Cr Clr Drug Dosing mL/min Estimated GFR (MDRD) (>60) mL/min BUN/Creatinine Ratio (14-18) Glucose (70-99) mg/dL Hemoglobin A1c ( - 5.6) % Calcium (8.5-10.1) mg/dL Total Bilirubin (0.2-1.0) mg/dL AST (15-37) U/L ALT (16-63) U/L Alkaline Phosphatase (46-116) U/L C-Reactive Protein (<1.0) mg/dL Total Protein (6.4-8.2) g/dl Albumin (3.4-5.0) g/dl Globulin gm/dL Albumin/Globulin Ratio (1-2) Urine Color Yellow (Yellow) Urine Appearance Slt cloudy H (Clear) Urine pH 5.5 (5.0-8.0) Ur Specific Jackson 1.025 (1.005-1.030) Urine Protein 2+ H (Negative) Urine Glucose (UA) 2+ H (Negative) Urine Ketones 2+ H (Negative) Urine Occult Blood 3+ H (Negative) Urine Nitrite Negative (Negative) Urine Bilirubin Negative (Negative) Urine Urobilinogen 0.2 (0.2-1.0) Ur Leukocyte Esterase Negative (Negative) Urine RBC >100 H (0-5) /hpf Urine WBC 0-5 (0-5) /hpf Ur Squamous Epith Cells 0-5 (0-5) /hpf Urine Bacteria Few (FEW) /hpf Urine Mucus Few (FEW) /hpf Meds: Medications Generic Name Dose Route Start Last Admin Trade Name Bonnie PRN Reason Stop Dose Admin Sodium Chloride 10 ml 04/26/21 08:04 04/26/21 08:20 Sodium Chloride 0.9% 10 Ml Syringe FLUSH 10 ml ASDIRECTED PRN Administration Keep Vein Open Discontinued Medications Generic Name Dose Route Start Last Admin Trade Name Bonnie PRN Reason Stop Dose Admin Hydromorphone HCl 1 mg 04/26/21 08:03 04/26/21 08:20 Hydromorphone 1 Mg/Ml Syringe IVPUSH 04/26/21 08:04 1 mg ONETIME ONE Administration Sodium Chloride 1,000 mls @ 999 mls/hr 04/26/21 08:09 04/26/21 08:20 Normal Saline IV 04/26/21 09:09 999 mls/hr NOW STA Administration Ketorolac Tromethamine 15 mg 04/26/21 08:27 04/26/21 08:33 Ketorolac 15 Mg/Ml Sdv IVPUSH 04/26/21 08:28 15 mg ONETIME ONE Administration Ondansetron HCl 4 mg 04/26/21 08:09 04/26/21 08:21 Ondansetron 4 Mg/2 Ml Sdv IVPUSH 04/26/21 08:10 4 mg ONETIME ONE Administration Oxycodone/Acetaminophen 1 tab 04/26/21 09:22 04/26/21 09:43 Acetaminophen/Oxycodone 325-5 Mg Tab PO 04/26/21 09:23 1 tab ONETIME ONE Administration - Re-Assessments/Exams Free Text/Narrative Re-Assessment/Exam: Patient is a 60-year-old male presenting to the emergency department complaints of acute onset of right lower quadrant abdominal pain with radiation to groin and flank around 3 AM this morning. Exam is unremarkable. He has no right lower quadrant tenderness or rigidity. No significant CVA tenderness. Patient does have history of kidney stone. Presentation is concerning for likely recurrence of kidney stone. I have ordered blood work, urinalysis, CT scan of the abdomen pelvis. I will give IV fluids, Dilaudid, Zofran, and Toradol. Patient reports that he did take ibuprofen 600 mg around 7 AM this morning, therefore I will only give 15 mg of IV Toradol. 04/26/21 09:25 Hematology significant for anion gap 16.3, glucose 361, AST 64, ALT 125, CRP 1.3. Patient has not produced a urine thus far. Symptoms have improved after the medications given. CT scan of the abdomen pelvis impression as follows: 1. Approximately 4 nonobstructing stones within the right kidney. Largest stone lies in the renal pelvis. Proximal right ureter is dilated with a 3 to 3.5 mm stone within the proximal right ureter. This is causing obstruction with inflammatory change being seen around the right proximal ureter. 2. Cyst within the right kidney. Single nonobstructing stone noted within the left kidney. 3. Fatty infiltration of the liver. Duodenal diverticulum is noted. 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 4. Other chronic findings as described above I have ordered 1 tablet of Percocet to be given now. Patient feels he will be able to provide us with a urine sample soon. 04/26/21 0950 I am concerned he may have undiagnosed type 2 diabetes given the significant elevation in his blood glucose at 361. He reports he did have some grapefruit juice and grapes earlier this morning, however this would not explain this degree of elevation. Patient denies any history of elevated blood sugars, however it has been quite sometime since he had blood work completed. I have added on a hemoglobin A1c to his blood work. 04/26/21 10:41 Hemoglobin A1c returned at 10.2 as well over the threshold for diagnosis of type 2 diabetes. Results discussed with patient. I will start him on Metformin 500 mg twice daily. He is going to work on dietary changes, alcohol abstinence, and exercise. I also discussed the results of CT including mild aneurysmal dilatation of the right common iliac artery at 2.7 cm. Would recommend that he call his primary care provider, Dr. Ramey, today to set up an ER follow-up at his next available visit to further address his new diabetes diagnosis as well as make him aware of the aneurysm should he want to follow-up on this in the future. Additionally, I will send referral to urologist, Dr. Molina for evaluation of kidney stones. Patient will be started on Percocet and Zofran. Discussed return precautions. Discharge instructions as documented. Departure - Departure Time of Disposition: 10:42 Disposition: Home, Self-Care 01 Condition: Good Clinical Impression: Kidney stone, New onset type 2 diabetes mellitus - Discharge Information *PRESCRIPTION DRUG MONITORING PROGRAM REVIEWED*: No *COPY OF PRESCRIPTION DRUG MONITORING REPORT IN PATIENT CAESAR: No Prescriptions: metFORMIN [Glucophage] 500 mg PO BIDMEALS #60 tab Acetaminophen/oxyCODONE [Percocet 325-5 MG] 1 each PO Q4H PRN #15 tab PRN Reason: Pain Ondansetron [Zofran ODT] 4 mg PO Q6H PRN #10 tab.dis PRN Reason: Nausea/Vomiting Instructions: Type 2 Diabetes Mellitus, Diagnosis, Adult, Kidney Stones Referrals: Gideon Elizabeth MD [Primary Care Provider] - Gerry Molina MD [Ordering Only Provider] - Forms: ED Department Discharge Additional Instructions: Take Tylenol and ibuprofen routinely for discomfort. For pain not relieved by this, use the oxycodone with Tylenol as prescribed. Ensure that you are not taking in more than 4000 mg of Tylenol from all sources in a 24-hour period. Strain your urine each time that you void. Take the Metformin twice daily as prescribed. This may cause GI upset. If the GI upset is significant, you may decrease to 500 mg once daily and then increase to twice daily after 1 week. Limit intake of carbohydrates and alcohol. Recommend daily exercise routine. Call to schedule an ER follow-up visit with your primary care provider soon as possible to further address new diagnosis of type 2 diabetes as well as discussed the small aneurysm in your right common iliac artery. Referral has been sent to urologist, Dr. Molina, for evaluation of kidney stones. Recommend calling to schedule a visit with him at his next available appointment. Return to ER for any new or worsening symptoms of concern. Sepsis Event Note (ED) - Evaluation Sepsis Screening Result: No Definite Risk - Focused Exam Vital Signs: Vital Signs Temp Pulse Resp BP Pulse Ox 04/26/21 07:27 97.8 F 54 L 18 172/98 H 94 L
[2021-04-26 10:33] LABS: HEMOGLOBIN A1C 10.2 %
[2021-04-26 10:42] VITALS: BP 160/78; PULSE 64
== END 2021-04-26 10:55 | disposition home or self-care (01) ==
LOC: JD.ED 07:16
DX: N20.2 Calculus of kidney with calculus of ureter (principal); Z72.0 Tobacco use; Z79.84 Long term (current) use of oral hypoglycemic drugs
CPT/HCPCS: 36415; 74176; 80053; 81001; 83036; 85025; 86140; 96374; 96375; 99284; A9270; J1170; J1885; J2405; J7030; 99285

== ENCOUNTER 2024-06-03 06:57 | Day surgery (SDC) | payer BC ==
[~2024-06-03 06:57] MED LIST changes: -Cefuroxime 10 MG/ML SYRINGE EYERT SCH; +Lidocaine 1% 4 ML ONE; -Lidocaine 1% PF 2 ML SDV INJECT SCH; +Midazolam 1 MG/ML 2 ML SDV ONE; +Propofol 200 MG/20 ML SDV ONE; +Sodium Chloride 0.9% 10 ML Syringe FLUSH PRN; +Sodium Chloride 0.9% 10 ML Syringe FLUSH SCH
[2024-06-03] MEDS: Lactated Ringers 1,000 ML IV SCH (07:30)
[2024-06-03] MEDS ORDERED: Propofol 200 MG/20 ML SDV ONE (08:24)
[2024-06-03 10:05] VITALS: BP 169/90; PULSE 58
== END 2024-06-03 09:21 | disposition home or self-care (01) ==
LOC: JD.SDS 06:57
PROVIDERS: ATTEND Family Medicine
DX: Z12.11 Encounter for screening for malignant neoplasm of colon (principal); K57.30 Diverticulosis of large intestine without perforation or abscess without bleeding; E11.9 Type 2 diabetes mellitus without complications; E78.2 Mixed hyperlipidemia; R80.9 Proteinuria, unspecified; Z79.84 Long term (current) use of oral hypoglycemic drugs; Z79.899 Other long term (current) drug therapy; Z86.0101 Personal history of adenomatous and serrated colon polyps
CPT/HCPCS: 45378; J2250; J2704; J7120; J3490